=== PATIENT | male | born 1950 | race African-American/Black ===

== ENCOUNTER 2025-03-20 21:46 | Emergency (ER) | payer OTHER, MEDICARE | END 2025-03-20 23:04 | disposition home or self-care (01) | LOC: MADERS 21:46 | DX: G44.309 Post-traumatic headache, unspecified, not intractable (principal); I10 Essential (primary) hypertension; Z91.148 Patient's other noncompliance with medication regimen for other reason; V49.40XA Driver injured in collision with unspecified motor vehicles in traffic accident, initial encounter | CPT/HCPCS: 70450 ==